=== PATIENT | female | born 1960 | race Caucasian/White ===

== ENCOUNTER 2017-05-09 13:13 | Day surgery (SDC) | payer BC ==
[~2017-05-09] VITALS: Ht 154.9 cm; Wt 78.9 kg
[~2017-05-09 13:13] MED LIST: ACID CONTROL150 MG PO; ADVIL200 MG PO; HYDROCHLOROTHIA25 MG PO; KLONOPIN0.5 M1 PO; LISINOPRIL20 MG PO; LOESTRIN 241 TABLET PO; NOLVADEX20 MG PO; NORCO 5/3251 TABLET PO; NORVASC2.5 MG PO; PROBIOTIC1 EAC1 PO; ZANAFLEX2 M1 PO; ZESTRIL,PRINIVI10 MG PO
[2017-05-09 13:44] VITALS: BP 147/88
[2017-05-09 17:35] VITALS: BP 136/80
[2017-05-09 18:15] VITALS: BP 141/74
== END 2017-05-09 18:31 | disposition home or self-care (01) ==
LOC: SDC 13:13
DX: N84.0 Polyp of corpus uteri (principal); N95.0 Postmenopausal bleeding; I10 Essential (primary) hypertension; K21.9 Gastro-esophageal reflux disease without esophagitis; F41.9 Anxiety disorder, unspecified; Z88.0 Allergy status to penicillin; Z85.3 Personal history of malignant neoplasm of breast
CPT/HCPCS: 88305; J0330; J0690; J1100; J1885; J2405; J3010